=== PATIENT | male | born 1970 | race Caucasian/White ===

== ENCOUNTER 2016-12-21 22:18 | Emergency (ER) | payer SELFPAY ==
--- NOTE | 2016-12-21 22:27 | CPEKG ---
Heart Rate: 92 RR Interval: 652 P-R Interval: 132 QRSD Interval: 78 QT Interval: 368 QTC Interval: 456 P [place]: 58 QRS [place]: 57 T Wave [place]: 35 EKG Severity - NORMAL ECG - EKG Impression: SINUS RHYTHM Electronically Signed By: Mandi Tai 21-Dec-2016 22:52:56
--- NOTE | 2016-12-21 22:30 | EDPHY ---
H & P HPI/ROS: HPI The patient presents with chest pain which began at 9:50 p.m. tonight when he was walking downtown. The pain is sharp and stabbing, in his mid chest, radiates toward his left arm with some numbness. The pain is associated with shortness of breath and nausea. He says the pain has been constant. He reports that on December 14 he had a cardiac stent placed in [facility] after an episode of chest pain. He is not sure which vessel the stent was in and if it was drug eluting or not. He says he is supposed to be on Plavix but has missed several doses and does not have the pill bottle with him. He does not have a stent card either. He says he arrived in [place] today on an airplane from [place] to visit his girlfriend. REVIEW OF SYSTEMS Constitutional: No fever, no chills. Eyes: No discharge. ENT: No sore throat. Cardiovascular: No chest pain, no palpitations. Respiratory: No cough, no shortness of breath. Gastrointestinal: No abdominal pain, no vomiting. Genitourinary: No hematuria. Musculoskeletal: No back pain. Skin: No rashes. Neurological: No headache. PMHx: Asthma, IgA nephropathy, CAD per his report Soc Hx: Cigarette smoker, visiting from [place] PHYSICAL General Appearance: Alert, no distress Eyes: Pupils equal and round no pallor or injection ENT, Mouth: Mucous membranes moist Respiratory: There are no retractions, lungs are clear to auscultation Cardiovascular: Regular rate and rhythm Gastrointestinal: Abdomen is soft and non-tender, no masses, bowel sounds normal Neurological: A&O, moves all extremities Skin: Warm and dry, no rashes Musculoskeletal: Neck is supple non tender Extremities: symmetrical, full range of motion Psychiatric: Patient is oriented X 3, there is no agitation Source: Patient, EMS, Old records Exam Limitations: No limitations Constitutional: Initial Vital Signs Temperature (C) 36.9 C 12/21/16 22:30 Heart Rate 100 12/21/16 22:30 Respiratory Rate 16 12/21/16 22:30 Blood Pressure 108/87 H 12/21/16 22:30 O2 Sat (%) 97 12/21/16 22:30 O2 Delivery Mode Room Air Allergies/Adverse Reactions: divalproex sodium [From Depakote] Allergy (Verified 12/21/16 22:38) Home Medications: Medication Instructions Recorded AMITRIPTYLINE HCL 12/21/16 Albuterol 12/21/16 Allopurinol 12/21/16 Inderal LA 12/21/16 Lisinopril 12/21/16 Plavix 12/21/16 Singulair 12/21/16 Vitamin D3 12/21/16 Medical Decision Making - Diagnostics EKG Interpretation: EKG: Complete interpretation has been separately recorded in the [facility] archive. Summary impression: Normal sinus rhythm, no ST segment changes or T- wave changes. Imaging Results: Imaging Impressions Chest X-Ray 12/21/16 22:23 Impression: No acute pulmonary disease. Differential Diagnosis: This is a 46-year-old man who is brought in by ambulance who reports history of cardiac stent placed 1 week ago in [place] is now presenting with 1 hour of chest pain while walking associated with shortness of breath and nausea. On exam, he has normal vital signs, he is well-appearing. Differential diagnosis includes ACS, pericarditis, pericardial effusion, GERD, anxiety. It is unusual that he does not have his stent card with him or his prescription for Plavix. Because of these factors, I looked him up in the [facility] [employer] database. It appears that he was at [facility] 2 days ago with the exact presentation and a completely normal workup. There may be some secondary gain contributing to his current presentation. We will pursue a cardiac workup, however I am less suspicious for ACS currently. Labs and studies were all unremarkable in the emergency room. I confronted the patient about his records at the [facility], and he denies that he went there and says he just arrived today from [place]. He became upset and tried to remove his IV. He will be discharged from the emergency room. - Data Points Laboratory Results: Laboratory Results 12/21/16 22:15 12/21/16 22:15 12/21/16 12/21/16 12/21/16 23:05 22:15 22:15 WBC 10.88 10^3/uL H 10^3/uL (3.80-9.50) RBC 4.60 10^6/uL 10^6/uL (4.40-6.38) Hgb 15.6 g/dL g/dL (13.7-17.5) Hct 44.5 % % (40.0-51.0) MCV 96.7 fL fL (81.5-99.8) MCH 33.9 pg pg (27.9-34.1) MCHC 35.1 g/dL g/dL (32.4-36.7) RDW 11.8 % % (11.5-15.2) Plt Count 263 10^3/uL 10^3/uL (150-400) MPV 10.7 fL fL (8.7-11.7) Neut % (Auto) 60.6 % % (39.3-74.2) Lymph % (Auto) 28.1 % % (15.0-45.0) [place] % (Auto) 7.4 % % (4.5-13.0) Eos % (Auto) 2.6 % % (0.6-7.6) Baso % (Auto) 1.0 % % (0.3-1.7) Nucleat RBC Rel Count 0.0 % % (0.0-0.2) Absolute Neuts (auto) 6.59 10^3/uL H 10^3/uL (1.70-6.50) Absolute Lymphs (auto) 3.06 10^3/uL H 10^3/uL (1.00-3.00) Absolute Monos (auto) 0.81 10^3/uL H 10^3/uL (0.30-0.80) Absolute Eos (auto) 0.28 10^3/uL 10^3/uL (0.03-0.40) Absolute Basos (auto) 0.11 10^3/uL H 10^3/uL (0.02-0.10) Absolute Nucleated RBC 0.00 10^3/uL 10^3/uL (0-0.01) Immature Gran % 0.3 % % (0.0-1.1) Immature Gran # 0.03 10^3/uL 10^3/uL (0.00-0.10) Sodium 139 mEq/L mEq/L (134-144) Potassium 4.4 mEq/L mEq/L (3.5-5.2) Chloride 100 mEq/L mEq/L (97-110) Carbon Dioxide 26 mEq/l mEq/l (22-31) Anion Gap 13 mEq/L mEq/L (8-16) BUN 18 mg/dL mg/dL (7-23) Creatinine 1.3 mg/dL mg/dL (0.7-1.3) Estimated GFR 60 Glucose 88 mg/dL mg/dL (70-100) Calcium 9.9 mg/dL mg/dL (8.5-10.4) Troponin I < 0.012 ng/mL ng/mL (0-0.034) Urine Opiates Screen NON-NEGATIVE H (NEGATIVE) Urine Barbiturates NON-NEGATIVE H (NEGATIVE) Ur Phencyclidine Scrn NEGATIVE (NEGATIVE) Ur Amphetamine Screen NEGATIVE (NEGATIVE) U Benzodiazepines Scrn NEGATIVE (NEGATIVE) Urine Cocaine Screen NEGATIVE (NEGATIVE) U Marijuana (THC) Screen NON-NEGATIVE H (NEGATIVE) Departure - Departure Disposition: Home, Routine, Self-Care Clinical Impression: Chest pain, Asthma Condition: Good Instructions: Chest Pain (ED) Additional Instructions: Please follow-up with the optical fabricator. I have given you the contact information for the clinic. You should return to the emergency room if you're worse in any way. Referrals: Harshad Shay MD [Medical Doctor] - As per Instructions [facility] [Outside] - As per Instructions
[2016-12-21 22:36] LABS: % IMMATURE GRANULYOCYTES 0.3 % (0.0-1.1); ABSOLUTE IMMATURE GRANULOCYTES 0.03 10^3/uL (0.00-0.10); ADD DIFF? NO; ADD MORPH? NO; ADD SCAN? NO; ATYPICAL LYMPHOCYTE FLAG 90 (0-99); FRAGMENT RBC FLAG 0 (0-99); HEMATOCRIT 44.5 % (40.0-51.0); HEMOGLOBIN 15.6 g/dL (13.7-17.5); LEFT SHIFT FLG 0 (0-99); LIPEMIA HEMOLYSIS FLAG 90 (0-99); MEAN CELL HEMOGLOBIN 33.9 pg (27.9-34.1); MEAN CELL HEMOGLOBIN CONCENTR. 35.1 g/dL (32.4-36.7); MEAN CELL VOLUME 96.7 fL (81.5-99.8); MEAN PLATELET VOLUME 10.7 fL (8.7-11.7); PLATELET CLUMPS FLAG 0 (0-99); PLATELET COUNT 263 10^3/uL (150-400); RED CELL DISTRIBUTION WIDTH 11.8 % (11.5-15.2)
[2016-12-21 22:38] VITALS: BP 108/87; PULSE 100; RESP 16; TEMP 98.4; O2SAT 97
[2016-12-21 22:54] LABS: ANION GAP 13 mEq/L (8-16); CALCIUM 9.9 mg/dL (8.5-10.4); CARBON DIOXIDE 26 mEq/l (22-31); CHLORIDE 100 mEq/L (97-110); CREATININE 1.3 mg/dL (0.7-1.3); GLOMERULAR FILTRATION RATE 60; GLUCOSE 88 mg/dL (70-100); POTASSIUM 4.4 mEq/L (3.5-5.2); SODIUM 139 mEq/L (134-144)
[2016-12-21 23:00] LABS: TROPONIN I < 0.012 ng/mL (0-0.034)
== END 2016-12-21 23:10 | disposition home or self-care (01) ==
DX: R07.9 Chest pain, unspecified (principal); J45.909 Unspecified asthma, uncomplicated; I25.10 Atherosclerotic heart disease of native coronary artery without angina pectoris; F17.210 Nicotine dependence, cigarettes, uncomplicated
CPT/HCPCS: 80305